=== PATIENT | female | born 1950 | race Caucasian/White ===

== ENCOUNTER → 2023-11-08 10:57 | Outpatient (REF) | payer OTHER, SELFPAY | LOC: WDC 10:57 | PROVIDERS: ATTENDING PHYSICIAN Obstetrics & Gynecology; FAMILY PHYSICIAN Internal Medicine | DX: R92.8 Other abnormal and inconclusive findings on diagnostic imaging of breast (principal) | CPT/HCPCS: 77061; 77065 ==

== ENCOUNTER → 2024-02-14 08:58 | Outpatient (REF) | payer OTHER, SELFPAY | LOC: HWWDC 08:58 | PROVIDERS: ATTENDING PHYSICIAN Obstetrics & Gynecology; FAMILY PHYSICIAN Internal Medicine | DX: Z12.31 Encounter for screening mammogram for malignant neoplasm of breast (principal) | CPT/HCPCS: 77063; 77067 ==

== ENCOUNTER → 2025-02-14 10:57 | Outpatient (REF) | payer OTHER, SELFPAY | LOC: RAD 10:57 | PROVIDERS: ATTENDING PHYSICIAN Hospitalist; FAMILY PHYSICIAN Family Medicine | DX: M81.0 Age-related osteoporosis without current pathological fracture (principal) | CPT/HCPCS: 77080 ==

== ENCOUNTER → 2025-04-02 10:09 | Outpatient (REF) | payer OTHER, SELFPAY | LOC: HWRAD 10:09 | PROVIDERS: ATTENDING PHYSICIAN Obstetrics & Gynecology; FAMILY PHYSICIAN Family Medicine | DX: R10.20 Pelvic and perineal pain unspecified side (principal) | CPT/HCPCS: 76856 ==